=== PATIENT | male | born 1985 | race Caucasian/White ===

== ENCOUNTER 2022-02-15 17:19 | Outpatient (CLI) | payer OTHER, SELFPAY ==
[2022-02-15 21:50] LABS: Albumin* 4.8 g/dL (3.3-5.0); Chloride* 103 mmol/L (96-114)
[2022-02-15 21:51] LABS: Potassium* 4.4 mmol/L (3.6-5.1); Sodium* 139 mmol/L (135-149)
[2022-02-15 21:53] LABS: Alkaline Phosphatase* 80 U/L (40-150); Aspartate Amino Transferase* 36 U/L (12-35); Bilirubin Total* 0.5 mg/dL (0.1-1.5); Blood Urea Nitrogen* 18 mg/dL (5-24); Carbon Dioxide* 26 mmol/L (20-32); Creatinine* 0.8 mg/dL (0.5-1.5); Estimated Glomerular Filt Rate 119 ml/min; Total Protein* 7.6 g/dL (6.0-8.3)
[2022-02-15 21:54] LABS: Alanine Aminotransferase* 30 U/L (4-50); Calcium* 9.3 mg/dL (8.4-10.6); Glucose* 102 mg/dL (60-115)
[2022-02-15 22:24] LABS: Hepatitis B Surface Antigen* Negative (Negative)
[2022-02-15 22:33] LABS: HIV 1/2/P24 Combo Screen* Negative (Negative)
[2022-02-15 22:44] LABS: Hepatitis C Virus Antibody* Negative (Negative)
[2022-02-16 00:21] LABS: Hepatitis B Surface Antibody* Positive (Negative)
[2022-02-17 21:10] LABS: Rapid Plasma Reagin (RPR) Non Reactive (Non Reactive)
== END 2022-02-15 17:20 | disposition home or self-care (01) ==
PROVIDERS: PCP Emergency Medicine; Visit Provider Emergency Medicine
DX: Z00.00 Encounter for general adult medical examination without abnormal findings (principal); R00.0 Tachycardia, unspecified; Z11.3 Encounter for screening for infections with a predominantly sexual mode of transmission
CPT/HCPCS: 80053; 84443; 86592; 86703; 86706; 86803; 87340